=== PATIENT | male | born 1990 | race African-American/Black ===

== ENCOUNTER 2016-07-12 16:01 | Inpatient (IN) | payer SELFPAY ==
[2016-07-12 16:54] LABS: Urine Bacteria Absent (Absent); Urine Bilirubin Negative (Negative); Urine Glucose Negative (Negative); Urine Nitrite Negative (Negative)
[2016-07-12 17:14] LABS: Hematocrit 43 % (42-52); Hemoglobin 14.7 g/dl (14.0-18.0); Mean Corpuscular HGB Conc 34 g/dl (31-36); Mean Corpuscular Hemoglobin 31 pg (27-31); Mean Corpuscular Volume 92 fL (80-94); Mean Platelet Volume 8 um3 (7.4-10.4); Red Blood Count 4.71 10^6/ul (4.0-5.4); Red Cell Distribution Width 13 % (10.5-15)
[2016-07-12 17:15] LABS: Add Diff/Slide Review? Slide Review Added; Comments Flag Yes
[2016-07-12 17:45] LABS: ALT 14 U/L (7-52); AST 19 U/L (13-39); Alkaline Phosphatase 60 U/L (34-104); Anion Gap 13 mmol/L (2-11); BUN/Creatinine Ratio 8.3 (8-20); Blood Urea Nitrogen 9 mg/dL (6-24); CO2 Carbon Dioxide 24 mmol/L (22-32); Calcium 10.4 mg/dL (8.6-10.3); Chloride 99 mmol/L (101-111); EGFR African American 103.6 (>60); EGFR Non-African American 80.6 (>60); Globulin 2.7 g/dL (2-4); Glucose 95 mg/dL (70-100); Potassium 3.6 mmol/L (3.5-5.0); Sodium 136 mmol/L (133-145); Total Protein 7.7 g/dL (6.4-8.9)
[2016-07-12 18:03] LABS: Acetaminophen < 15 mcg/mL; Alcohol < 10 mg/dL (<10); Salicylate < 2.50 mg/dL (<30)
[2016-07-12 18:08] LABS: TSH (Thyroid Stimulating Horm) 1.25 mcIU/mL (0.34-5.60)
[2016-07-12 18:23] LABS: Benzodiazepine Urine Screen None Detected (None Detect)
[2016-07-12] MEDS: LORazepam TAB(*) 1 MG PO ONE (21:33)
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
[2016-07-13] MEDS ORDERED: chlorproMAZINE TAB* 100 MG PO ONE (00:28)
[2016-07-13] MEDS: LORazepam TAB(*) 1 MG PO ONE (02:32)
[2016-07-13] MEDS ORDERED: chlorproMAZINE TAB* 50 MG Q6H PRN AGITATION PO (18:24)
[2016-07-13] MEDS ORDERED: Al Hydrox/Mg Hydrox/Simet LIQ* 30 ML UDC PO PRN (18:24)
[2016-07-13] MEDS ORDERED: Acetaminophen TAB* 325 MG PO PRN (18:24)
[2016-07-14] MEDS: Vitamin THERAPEUTIC TAB PO SCH (08:53)
[2016-07-14] MEDS ORDERED: Nicotine Inhaler* 10 MG AMP INH PRN (13:21)
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
[2016-07-15] MEDS: OLANzapine TAB*ODT* 10 MG TAB PO SCH (10:07)
[2016-07-15] MEDS: Vitamin THERAPEUTIC TAB PO SCH (10:07)
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
[2016-07-16 07:51] VITALS: BP 121/72
[2016-07-16] MEDS: Vitamin THERAPEUTIC TAB PO SCH (09:40)
[2016-07-16] MEDS: OLANzapine TAB*ODT* 10 MG TAB PO SCH (09:40)
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
== END 2016-07-16 15:20 | disposition home or self-care (01) | DRG 897 ==
LOC: EEVIPCON 16:01 → ED 16:01 → BSU 07-13 19:02
PROVIDERS: ADMIT Psychiatry & Neurology Psychiatry; ATTEND Psychiatry & Neurology Psychiatry
DX: F19.159 Other psychoactive substance abuse with psychoactive substance-induced psychotic disorder, unspecified (principal); F10.10 Alcohol abuse, uncomplicated; F12.10 Cannabis abuse, uncomplicated; F60.2 Antisocial personality disorder
CPT/HCPCS: 36415; 80053; 80307; 80320; 80329; 81003; 81015; 84443; 85025; 99222; 99231; 99238; 99406; A9270-GY; G0480

== ENCOUNTER 2018-09-27 14:22 | Emergency (ER) | payer OTHER ==
[2018-09-27] MEDS ORDERED: NS 0.9% 1000 ML** 1,000 ML IV ONE (14:59)
[2018-09-27] MEDS ORDERED: oxyCODONE/Acetamin 5/325 MG* TAB PO ONE (15:01)
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
[2018-09-27 15:53] LABS: ABS Basophils 0 10^3/ul (0-0.2); ABS Eosinophils 0 10^3/ul (0-0.6); ABS Lymphocytes 1.5 10^3/ul (1.0-4.8); ABS Monocytes 0.4 10^3/ul (0-0.8); ABS Nucleated RBC 0 10^3/ul; Eosinophil % 0.4 %; Hematocrit 46 % (36-46); Hemoglobin 16.2 g/dL (14.0-18.0); Lymphocyte % 25.3 %; Mean Corpuscular HGB Conc 35 g/dL (31-36); Mean Corpuscular Hemoglobin 33 pg (27-31); Mean Corpuscular Volume 95 fL (80-94); Mean Platelet Volume 7.9 fL (7.4-10.4); Nucleated Red Blood Cells % 0.1; Platelet Count 217 10^3/uL (150-450); Red Blood Count 4.85 10^6 /uL (4.18-5.48); Red Cell Distribution Width 13 % (10.5-15)
[2018-09-27 16:07] LABS: INR 0.92 (0.77-1.02)
[2018-09-27 16:09] LABS: ALT 16 U/L (7-52); Albumin 4.9 g/dL (3.2-5.2); Albumin/Globulin Ratio 1.9 (1-3); Alkaline Phosphatase 56 U/L (34-104); BUN/Creatinine Ratio 10.6 (8-20); Blood Urea Nitrogen 9 mg/dL (6-24); CO2 Carbon Dioxide 23 mmol/L (22-32); Calcium 9.5 mg/dL (8.6-10.3); Chloride 99 mmol/L (101-111); EGFR African American 128.1 (>60); EGFR Non-African American 105.8 (>60); Globulin 2.6 g/dL (2-4); Glucose 84 mg/dL (70-100); Sodium 131 mmol/L (135-145); Total Protein 7.5 g/dL (6.4-8.9)
[2018-09-27 16:11] LABS: Anion Gap 9 mmol/L (2-11)
[2018-09-27] MEDS ORDERED: Iohexol 300* (CONTRAST) 10 ML SDV IV ONE (16:22)
[2018-09-27 16:41] LABS: Urine Appearance Clear; Urine Bacteria Absent (Absent); Urine Bilirubin Negative (Negative); Urine Blood 1+ (Negative); Urine Color Colorless; Urine Glucose Negative (Negative); Urine Ketones Negative (Negative); Urine Nitrite Negative (Negative); Urine Protein Negative (Negative); Urine Red Blood Cell Trace(0-2/hpf) (Absent); Urine Urobilinogen Negative (Negative); Urine White Blood Cell Absent (Absent)
[2018-09-27 17:35] LABS: Potassium Redraw 3.6 mmol/L (3.5-5.0)
[2018-09-27 17:39] VITALS: BP 142/63
== END 2018-09-27 17:38 | disposition home or self-care (01) ==
LOC: ED 14:22
DX: M54.9 Dorsalgia, unspecified (principal); M25.512 Pain in left shoulder; R55 Syncope and collapse; F17.210 Nicotine dependence, cigarettes, uncomplicated; Z04.1 Encounter for examination and observation following transport accident
CPT/HCPCS: 36415; 71260; 74177; 80053; 81003; 81015; 83690; 84484; 85025; 85610; 96360; 99282; A9270-GY; Q9967